=== PATIENT | male | born 1995 | race Caucasian/White ===

== ENCOUNTER 2023-08-06 18:53 | Emergency (ER) | payer SELFPAY ==
[2023-08-06 18:59] VITALS: BMI 30.9
[2023-08-06] MEDS ORDERED: DEXAMETHASONE SOD PHOSPHATE 10 MG/1 ML VIAL IVPUSH ONE (22:07)
[2023-08-06] MEDS ORDERED: ACETAMINOPHEN 1000 MG/100 ML BAG IVPB ONE (22:12)
[2023-08-06] MEDS ORDERED: SODIUM CHLORIDE 1,000 ML IV STA (22:17)
[2023-08-06] MEDS ORDERED: DEXAMETHASONE SOD PHOSPHATE 10 MG/1 ML VIAL ONE (22:34)
[2023-08-06] MEDS ORDERED: ACETAMINOPHEN INJECTION 100 ML IVPB ONE (22:34)
[2023-08-06 23:18] LABS: BASO % 0.5 % (0-2.0); EOS % 2.1 % (0-4.5); HEMATOCRIT 45.6 % (35.4-49); HEMOGLOBIN 15.9 GM/dL (11.7-16.9); MCHC 34.9 g/dl (32.0-35.9); MEAN PLT VOLUME 8.3 fl (7.5-11.1); MONO % 8.9 % (3.8-10.2); NEUT % 65.5 % (42.8-82.8); PLATELET COUNT 347 10^3/uL (134-434); RDW 13.4 % (11.9-15.9)
[2023-08-07 01:33] VITALS: BP 116/76; PULSE 75; RESP 16; TEMP 98.1
[2023-08-07 01:56] LABS: POTASSIUM 4.5 mmol/L (3.5-5.1)
[2023-08-07 01:57] LABS: CALCIUM 8.8 mg/dL (8.5-10.1)
[2023-08-07 02:01] LABS: CREATININE 0.8 mg/dL (0.55-1.3)
== END 2023-08-07 03:58 | disposition home or self-care (01) ==
LOC: JER 18:53
PROC: 3E033NZ Introduction of Analgesics, Hypnotics, Sedatives into Peripheral Vein, Percutaneous Approach (ICD-10-PCS; principal; 2023-08-06)
PROC: 3E033GC Introduction of Other Therapeutic Substance into Peripheral Vein, Percutaneous Approach (ICD-10-PCS; 2023-08-06)
PROC: 3E0337Z Introduction of Electrolytic and Water Balance Substance into Peripheral Vein, Percutaneous Approach (ICD-10-PCS; 2023-08-06)
DX: J02.0 Streptococcal pharyngitis (principal); R13.10 Dysphagia, unspecified; J35.1 Hypertrophy of tonsils; Z20.822 Contact with and (suspected) exposure to COVID-19
CPT/HCPCS: 0241U-QW; 36415; 70491-TC; 80048; 80053; 85025; 87070; 87651; 99285-25; J1100; Q9967